=== PATIENT | female | born 1990 | race Caucasian/White ===

== ENCOUNTER 2019-05-22 17:55 | Inpatient (IN) | payer OTHER ==
[~2019-05-22] VITALS: Ht 172.7 cm; Wt 104.3 kg
[2019-05-22] MEDS ORDERED: LR 1,000 ML IV SCH (20:27)
[2019-05-22] MEDS ORDERED: OXYTOCIN/0.9 % SODIUM CHLORIDE 1,000 ML IV SCH (20:27)
[2019-05-22 20:30] VITALS: BP_SYST 114; BP_SYST 126
[2019-05-22] MEDS ORDERED: TERBUTALINE SULFATE 1 MG/ML VIAL SUBCUT ONE (20:30)
[2019-05-22] MEDS ORDERED: DINOPROSTONE 10 MG SUPP VG ONE (20:30)
[2019-05-22 20:56] LABS: BASOPHILS # (AUTO) 0.1 K/uL (0.0-0.2); BASOPHILS % (AUTO) 1.1 % (0.0-2.0); EOSINOPHILS # (AUTO) 0.2 K/uL (0.0-0.4); EOSINOPHILS % (AUTO) 1.8 % (0.0-4.0); HEMATOCRIT 38.2 % (36-48); HEMOGLOBIN 13.1 g/dL (12.0-16.0); LYMPHOCYTES # (AUTO) 2.2 K/uL (1.0-5.5); LYMPHOCYTES % (AUTO) 25.5 % (20.5-51.5); MEAN CORPUSCULAR HEMOGLOBIN 33 pg (27-31); MEAN CORPUSCULAR HGB CONC 34 % (32-36); MEAN CORPUSCULAR VOLUME 95 fL (79.0-98.0); MONOCYTES # (AUTO) 0.6 K/uL (0.0-1.0); MONOCYTES % (AUTO) 6.7 % (1.7-9.3); NEUTROPHILS # (AUTO) 5.7 K/uL (1.8-7.7); NEUTROPHILS % (AUTO) 64.9 % (40.0-70.0); PLATELET COUNT (AUTO) 193 K/uL (130-430); RED CELL DISTRIBUTION WIDTH 12.9 % (9.0-15.0); WHITE BLOOD COUNT (AUTO) 8.8 K/uL (4.8-10.8)
[2019-05-23] MEDS ORDERED: OXYTOCIN/0.9 % SODIUM CHLORIDE 1,000 ML IV SCH ×2 (10:12→23:10)
[2019-05-23] MEDS ORDERED: MORPHINE SULFATE 10 MG/ML VIAL IVP PRN (15:15)
[2019-05-23] MEDS ORDERED: hydrALAZINE HCL 20 MG/ML VIAL IVP PRN (18:30)
[2019-05-23] MEDS ORDERED: LR 500 ML IV ONE (19:33)
[2019-05-23] MEDS ORDERED: FENT2mCg/mL-ROPIVA0.2%/NS EPID 200 ML EP SCH (19:45)
[2019-05-23] MEDS ORDERED: fentaNYL CITRATE/PF 100 MCG/2 ML AMP ONE (19:48)
[2019-05-23] MEDS ORDERED: ROPIVACAINE HCL/PF 0.2% 200 ML ONE (19:49)
[2019-05-23] MEDS ORDERED: TEMAZEPAM 15 MG CAPSULE PO PRN (21:00)
[2019-05-23] MEDS ORDERED: OXYTOCIN/0.9 % SODIUM CHLORIDE 1,000 ML IV ONE (23:10)
[2019-05-23] MEDS ORDERED: DIPH-TET-PERTUS Vaccine 0.5 ML VIAL (ADACEL) I.M. PRN (23:15)
[2019-05-23] MEDS ORDERED: DERMOPLAST SPRAY TP PRN (23:15)
[2019-05-23] MEDS ORDERED: ANUSOL 1 EA SUPP.RECT (PREPARATION H) RC PRN (23:15)
[2019-05-23] MEDS ORDERED: WITCH HAZEL LEAF 1 MED.PAD MED.PAD TP PRN (23:15)
[2019-05-23] MEDS ORDERED: SENNOSIDES/DOCUSATE SODIUM 1 TAB TABLET(SENOKOT-S) PO PRN (23:15)
[2019-05-23] MEDS ORDERED: HYDROCORTISONE 0.5%, 28.35 GM TOPICAL CREAM TP PRN (23:15)
[2019-05-23] MEDS ORDERED: METHYLERGONOVINE MALEATE 0.2 MG TABLET PO PRN (23:15)
[2019-05-23] MEDS ORDERED: HYDROcodone/ACETAMIN 5-325 MG TAB (NORCO/ VICODIN) PO PRN (23:15)
[2019-05-23] MEDS ORDERED: OXYCODONE/ACETAMINOPHEN 5-325 TABLET PO PRN ×2 (23:15)
[2019-05-23] MEDS ORDERED: RHO(D) IMMUNE GLOBULIN/MALTOSE 1500 UNITS/1.3 ML (WINHRO) IM PRN (23:15)
[2019-05-23] MEDS ORDERED: DOCUSATE SODIUM 100 MG CAPSULE PO PRN (23:15)
[2019-05-23] MEDS ORDERED: MEASLES,MUMPS&RUBELLA VACC/PF 12500 UNIT/0.5 ML VIAL SUBQ PRN (23:15)
[2019-05-23] MEDS ORDERED: LANOLIN 7 GM OINT. TP PRN (23:15)
[2019-05-24] MEDS: IBUPROFEN 600 MG TABLET PO SCH ×3 (01:14→17:41)
[2019-05-24 07:08] LABS: BASOPHILS % (AUTO) 0.2 % (0.0-2.0); EOSINOPHILS % (AUTO) 0.2 % (0.0-4.0); HEMATOCRIT 31.4 % (36-48); HEMOGLOBIN 10.8 g/dL (12.0-16.0); LYMPHOCYTES # (AUTO) 3.1 K/uL (1.0-5.5); LYMPHOCYTES % (AUTO) 18.9 % (20.5-51.5); MEAN CORPUSCULAR HEMOGLOBIN 33 pg (27-31); MEAN CORPUSCULAR HGB CONC 34 % (32-36); MEAN CORPUSCULAR VOLUME 97 fL (79.0-98.0); MONOCYTES % (AUTO) 6.2 % (1.7-9.3); NEUTROPHILS # (AUTO) 12.3 K/uL (1.8-7.7); NEUTROPHILS % (AUTO) 74.5 % (40.0-70.0); PLATELET COUNT (AUTO) 194 K/uL (130-430); RED BLOOD CELL COUNT(AUTO) 3.24 MIL/uL (4.2-6.2); RED CELL DISTRIBUTION WIDTH 13.3 % (9.0-15.0)
[2019-05-24 07:51] LABS: WHITE BLOOD COUNT (AUTO) 16.5 K/uL (4.8-10.8)
[2019-05-24] MEDS ORDERED: MINERAL OIL 30 ML UDC PO ONE (13:14)
== END 2019-05-24 23:25 | disposition home or self-care (01) | DRG 807 ==
LOC: PREOBSVTOIN 17:55 → SPU 20:17
PROVIDERS: ADMIT Specialist; ATTEND Specialist
PROC: 10E0XZZ Delivery of Products of Conception, External Approach (ICD-10-PCS; principal; 2019-05-23)
PROC: 0KQM0ZZ Repair Perineum Muscle, Open Approach (ICD-10-PCS; 2019-05-23)
PROC: 3E0P7VZ Introduction of Hormone into Female Reproductive, Via Natural or Artificial Opening (ICD-10-PCS; 2019-05-23)
PROC: 3E0R3BZ Introduction of Anesthetic Agent into Spinal Canal, Percutaneous Approach (ICD-10-PCS; 2019-05-23)
PROC: 00HU33Z Insertion of Infusion Device into Spinal Canal, Percutaneous Approach (ICD-10-PCS; 2019-05-23)
DX: O69.89X0 Labor and delivery complicated by other cord complications, not applicable or unspecified (principal); Z37.0 Single live birth; O70.1 Second degree perineal laceration during delivery; Z3A.39 39 weeks gestation of pregnancy
CPT/HCPCS: 36415; 76815; 81002-TC; 85025; 86592; 86886; 86900; 86901; J2270; J2590; J3010; J7120